=== PATIENT | male | born 1975 | race Asian ===

== ENCOUNTER 2016-11-24 22:06 | Emergency (ER) | payer BC ==
--- NOTE | 2016-11-24 22:12 | PDOC ---
History of Present Illness - General Chief Complaint: Pain, Acute Stated Complaint: RT FLANK PAIN Time Seen by Provider: 11/24/16 22:11 Past History - Past Medical History Allergies/Adverse Reactions: Allergies Allergy/AdvReac Type Severity Reaction Status Date / Time No Known Allergies Allergy Verified 11/24/16 22:30 Home Medications: Ambulatory Orders Tamsulosin HCl [Flomax] 0.4 mg PO DAILY #7 cap.er.24h 11/24/16 Ibuprofen [Motrin -] 600 mg PO TID #30 tablet 11/25/16 Oxycodone HCl/Acetaminophen [Percocet 5/325 -] 1 tab PO Q6H #20 tablet MDD 6 04/12 Review of Systems - Review of Systems Constitutional: Yes: Chills. No: Symptoms Reported, See HPI, Diaphoresis, Fever , Loss of Appetite, Malaise, Night Sweats, Weakness, Weight Stable, Unintentional Wgt. Loss, Unexplained wgt Loss, Other HEENTM: No: Symptoms Reported, See HPI, Eye Pain, Blurred Vision, Tearing, Recent change in vision, Double Vision, Cataracts, Ear Pain, Ocular Prothesis, Ear Discharge, Nose Pain, Nose Congestion, Tinnitus, Nose Bleeding, Hearing Loss , Throat Pain, Throat Swelling, Mouth Pain, Dental Problems, Difficulty Swallowing, Mouth Swelling, Other Respiratory: No: Symptoms reported, See HPI, Cough, Orthopnea, Shortness of Breath, SOB with Exertion, SOB at Rest, Stridor, Wheezing, Productive cough, Hemoptysis, Other Cardiac (ROS): No: Symptoms Reported, See HPI, Chest Pain, Edema, Irregular Heart Rate, Lightheadedness, Palpitations, Syncope, Chest Tightness, Other ABD/GI: Yes: Abdominal cramping. No: Symptoms Reported, See HPI, Abdominal Distended, Abd. Pain w/ defecation, Blood Streaked Bowels, Constipated, Diarrhea , Difficulty Swallowing, Nausea, Poor Appetite, Poor Fluid Intake, Rectal Bleeding, Vomiting, Indigestion, Tarry Stools, Other : Yes: Flank Pain. No: Symptoms Reported, See HPI, Burning, Dysuria, Discharge, Frequency, Hematuria, Incontinence, Pain, Urgency, Testicular Mass, Testicular Swelling, Lesions, Testicular Pain, Other Musculoskeletal: No: Symptoms Reported, See HPI, Back Pain, Gout, Joint Pain, Joint Swelling, Muscle Pain, Muscle Weakness, Neck Pain, Joint Stiffness, Other Integumentary: No: Symptoms Reported, See HPI, Bruising, Change in Color, Change in Hair/Nails, Dryness, Erythema, Flushing, Lesions, Lumps, Pallor, Pruritus, Rash, Sweating, Other Neurological: No: Symptoms reported, See HPI, Headache, Numbness, Paresthesia, Pre-Existing Deficit, Seizure, Tingling, Tremors, Weakness, Unsteady Gait, Ataxia, Dizziness, Other Psychiatric: No: Anxiety, Depression, Frequent Crying, Stressors, Sleep Pattern Change, Emotional Problems, Mood Swings, Change in Appetite, Other Endocrine: No: Symptoms Reported, See HPI, Excessive Sweating, Flushing, Intolerance to Cold, Intolerance to Heat, Increased Hunger, Increased Thirst, Increased Urine, Unexplained Weight Gain, Unexplained Weight Loss, Change in Weight, Other Hematologic/Lymphatic: No: Symptoms Reported, See HPI, Anemia, Blood Clots, Easy Bleeding, Easy Bruising, Bleeding Diathesis, Lymph Node Abnormalities, Swollen Glands, Other *Physical Exam - Physical Exam General Appearance: Yes: Nourished, Moderate Distress HEENT: positive: EOMI, IRMA, Normal ENT Inspection, Normal Voice, Symmetrical, TMs Normal, Pharynx Normal Neck: positive: Trachea midline, Supple Respiratory/Chest: positive: Lungs Clear, Normal Breath Sounds Cardiovascular: positive: Regular Rhythm, Regular Rate, S1, S2 Gastrointestinal/Abdominal: positive: Normal Bowel Sounds, Flat, Soft Rectal Exam: positive: heme negative stool, normal exam Musculoskeletal: positive: Normal Inspection Extremity: positive: Normal Capillary Refill Integumentary: positive: Normal Color, Dry, Warm 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 LAst week he had a sono kidneys pelvis that showed nothing. On exam, pt has no inguinal hernia, and no testicular torsion or masses. Pt states that the oain radiated to the groin. He has slight hematuria. Pt will be evaluated for a kidney stone. 11/24/16 23:59 Patient Name: SHARAN CALDWELL THIS IS A PRELIMINARY REPORT FROM [facility]AG[facility] [employer]ELF [employer]PER[employer] DATE OF SERVICE: 2016-11-24 23:17:32 IMAGES: [id number] EXAM: CT ABDOMEN AND PELVIS HISTORY:Kidney stones COMPARISON: None. FINDINGS: Abdomen Liver: Normal Spleen: Normal Pancreas: Normal Gallbladder: Normal Stomach: Normal Small bowel: Normal Large bowel: Normal Appendix: Normal Adrenals:Normal Kidneys: There is a 4 mm distal right ureteral stone with moderate hydronephrosis and ureteral distention Vascular: Normal Lymphatic: Normal Peritoneal: No free peritoneal air or fluid Pelvis: Prostate: normal Rectum: Normal Bladder: Normal The inferior thorax: Normal General: Skeletal: Normal Abdominal wall: Normal IMPRESSION: Right-sided obstructive uropathy THIS DOCUMENT HAS BEEN ELECTRONICALLY SIGNED 11/25/16 02:47 Pt sent home with flomax and urology follow up. Pt will not require admission at this time, as BUN and Cr are normal. He is afebrile and able to tolerate PO. He will take NSAIDS for pain. Percocets also prescribed for breakthru pain. Return to ER for intractrable pain. *DC/Admit/Observation/Transfer Diagnosis at time of Disposition: Kidney stone on right side - Discharge Dispostion Disposition: HOME Condition at time of disposition: Improved Admit: No - Prescriptions Prescriptions: Tamsulosin HCl [Flomax] 0.4 mg PO DAILY #7 cap.er.24h Ibuprofen [Motrin -] 600 mg PO TID #30 tablet Oxycodone HCl/Acetaminophen [Percocet 5/325 -] 1 tab PO Q6H #20 tablet MDD 6 - Referrals Referrals: Deven Borjas MD., MD [Staff Physician] - - Patient Instructions Printed Discharge Instructions: Kidney Stones -- Adult - Post Discharge Activity Forms/Work/School Notes: Back to Work
[2016-11-24] MEDS ORDERED: morphine CARPU-JECT 2 MG/1 ML DISP.SYRIN IVPUSH ONE (22:17)
[2016-11-24] MEDS ORDERED: KETOROLAC TROMETHAMINE 30 MG/1 ML VIAL IVPUSH ONE (22:17)
[2016-11-24] MEDS ORDERED: SODIUM CHLORIDE 0.9% 500 ML INFUS.BAG IV ONE ×2 (22:17→23:15)
[2016-11-24 22:42] LABS: BASOPHIL 0.8 % (0-2.0); EOSINOPHIL 1.5 % (0-4.5); MCH 29.3 pg (25.7-33.7); MCHC 34.1 g/dl (32.0-35.9); MEAN CELL VOLUME 86.1 fl (80-96); MEAN PLT VOLUME 9.6 fl (7.5-11.1); PLATELET COUNT 142 K/MM3 (134-434); WHITE BLOOD COUNT 6.4 K/mm3 (4.0-10.8)
[2016-11-24 22:49] LABS: ALBUMIN 4.4 g/dl (3.5-5.0); ALK PHOS 58 U/L (32-92); ANION GAP 2 (8-16); BILIRUBIN,TOTAL 0.6 mg/dl (0.2-1.0); CO2 26 mmol/L (22-28); CREATININE 1.1 mg/dl (0.6-1.3); GLUCOSE,RANDOM 107 mg/dl (74-106); SGOT/AST 30 U/L (10-42); SGPT/ALT 30 U/L (10-40); TOT PROT 6.8 g/dl (6.4-8.3)
[2016-11-24 22:58] LABS: PH,URINE 6.5 (4.5-8); URINE APPEARANCE Clear; URINE BILIRUBIN Negative (NEGATIVE); URINE GLUCOSE (UA) Negative (NEGATIVE); URINE KETONE Negative (NEGATIVE); URINE LEUK ESTERASE Negative (NEGATIVE); URINE NITRITE Negative (NEGATIVE); URINE PROTEIN Negative (NEGATIVE)
[2016-11-24 23:00] VITALS: TEMP 97.6; BMI 23.3
[2016-11-24 23:07] LABS: URINE BLOOD 2+ (NEGATIVE); URINE COLOR YELLOW
[2016-11-24 23:11] LABS: URINE BACTERIA FEW /hpf (NEGATIVE); URINE RBC 20-30 /hpf (0-3)
[2016-11-24] MEDS ORDERED: TAMSULOSIN HCL 0.4 MG CAP.ER.24H (FP) PO ONE (23:48)
[2016-11-25] MEDS ORDERED: TAMSULOSIN HCL 0.4 MG CAP.ER.24H (FP) ONE (00:13)
[2016-11-25] MEDS ORDERED: morphine CARPU-JECT 2 MG/1 ML DISP.SYRIN ONE (00:18)
[2016-11-25 00:56] VITALS: BP 112/68; PULSE 20
== END 2016-11-25 00:59 | disposition home or self-care (01) ==
LOC: FER 22:06
PROC: 3E0333Z Introduction of Anti-inflammatory into Peripheral Vein, Percutaneous Approach (ICD-10-PCS; principal; 2016-11-24)
PROC: 3E033NZ Introduction of Analgesics, Hypnotics, Sedatives into Peripheral Vein, Percutaneous Approach (ICD-10-PCS; 2016-11-24)
PROC: 3E0337Z Introduction of Electrolytic and Water Balance Substance into Peripheral Vein, Percutaneous Approach (ICD-10-PCS; 2016-11-24)
DX: N20.0 Calculus of kidney (principal)
CPT/HCPCS: 36415; 74176-TC; 80053; 81003; 81015; 85025; 87086; 99282-25